=== PATIENT | female | born 1985 | race Two or more races ===

== ENCOUNTER 2025-06-16 16:26 | Emergency (ER) | payer OTHER ==
[~2025-06-16] VITALS: Ht 165.1 cm; Wt 79.8 kg
--- NOTE | 2025-06-16 17:50 | ED.PDOC ---
GI ASSESSMENT HPI Comments This is a 39 year-old female who presents to the ED with a chief complaint of LUQ abdominal pain as of X2 weeks ago. Patient reports additional symptoms of Nausea X2 days ago, but denies nausea as of currently. Patient states LUQ abdominal pain is an 8/10 and radiates to the LLQ and L groin. Patient reports a Hx of kidney stones but states the pain does not feel the similar to previous diagnoses. Patient has been taking antibiotics for x1 week. Patient additionally states she took Tylenol prior to ED visit, at 1500 today. Patient has no further complaints at this time and otherwise denies flank pain, N/V/D, dysuria, hematuria, fever, or chills. Vital signs were stable. Chief Complaint: Abdominal Pain Time Seen by MD: 17:44 Reviewed Notes: Nurses Notes, Medications, Allergies Allergies: Coded Allergies: NO KNOWN ALLERGIES (Unverified , 06/16/25) Information Source: Patient Mode of Arrival: Ambulatory Timing: Weeks Duration: Since onset Prehospital treatment: None Quality: Aching, Cramping, Sharp Vomitus: None Severity: Moderate Recent: None Recent Hx of: None Pain Location: LUQ, LLQ Associated sign and symptoms: Nausea, Abdominal Pain Past Medical History PAST MEDICAL HISTORY: Denies Surgical History: Denies all surgeries [employer] History: No Pertinent [employer]ER History Family History Family History: Reviewed,noncontributory to illness, No family hx of Cancer, No family hx of DM, No family hx of Heart smiley, No family hx of HTN, No family hx ofKidney smiley, No family hx of Liver smiley, No family hx of Lung smiley, No family hx of Stroke Social History Smoker: Non-Smoker Alcohol: Denies ETOH Use Drugs: Denies Drug Use Lives In: Home Constitutional: denies: chills, diaphoresis, fatigue, fever, malaise, sweats, weakness, others EENTM: denies: blurred vision, double vision, ear bleeding, ear discharge, ear drainage, ear pain, ear ringing, eye pain, eye redness, hearing loss, mouth pain, mouth swelling, nasal discharge, nose bleeding, nose congestion, nose pain, photophobia, tearing, throat pain, throat swelling, voice changes, others Respiratory: denies: cough, hemoptysis, orthopnea, SOB at rest, shortness of breath, SOB with excertion, stridor, wheezing, others Cardiovascular: denies: chest pain, dizzy spells, diaphoresis, Dyspnea on exertion, edema, irregular heart beat, left arm pain, lightheadedness, palpitations, PND, syncope, others Gastrointestinal: reports: abdominal pain, nausea; denies: abdomen distended, blood streaked bowels, constipated, diarrhea, dysphagia, difficulty swallowing, hematemesis, melena, poor appetite, poor fluid intake, rectal bleeding, rectal pain, vomiting, others Genitourinary: denies: abnormal vagina bleeding, burning, dyspareunia, dysuria, flank pain, frequency, hematuria, incontinence, pain, , vagina discharg e, urgency, others Neurological: denies: dizziness, fainting, headache, left sided numbness, left sided weakness, numbness, paresthesia, pre-existing deficit, right sided numbness, right sided weakness, seizure, speech problems, tingling, tremors, weakness, others Musculoskeletal: denies: back pain, gout, joint pain, joint swelling, muscle pain, muscle stiffness, neck pain, others Integumetry: denies: bruises, change in color, change in hair/nails, dryness, laceration, lesions, lumps, rash, wounds, others Allergic/Immunocompromised: denies: Difficulty Healing, Frequent Infections, Hives, Itching, others Hematologic/Lymphatic: denies: anemia, blood clots, easy bleeding, easy bruising, swollen glands, others Endocrine: denies: excessive hunger, excessive sweating, excessive thirst, excessive urination, flushing, intolerance to cold, intolerance to heat, unexplained weight gain, unexplained weight loss, others Psychiatric: denies: anxiety, bipolar disorder, depression, hopeless, panic d isorder, schizophrenia, sleepless, suicidal, others All Other Systems: Reviewed and Negative Physical Exam General Appearance: Moderate Distress (Due to left-sided upper and lower quadrant pain.), Obese HEENT: Normal ENT Inspection, Pharynx Normal, TMs Normal Neck: Full Range of Motion, Non-Tender, Normal, Normal Inspection Respiratory: Chest Non-Tender, Lungs Clear, No Accessory Muscle Use, No Respiratory Distress, Normal Breath Sounds Cardiovascular: No Edema, No JVD, No Murmur, No Gallop, Normal Peripheral Pulses, Regular Rate/Rhythm Breast Exam: Deferred Gastrointestinal: Other (Diffuse nonspecific left upper quadrant pain extending in the left lower quadrant. Unable to appreciate the splenic border. Difficult to assess due to body habitus. No signs of trauma.) Genitalia: Deferred Pelvic: Deferred Rectal: Deferred Extremities: No calf tenderness, Normal capillary refill, Normal inspection, Normal range of motion, Non-tender, No pedal edema Neurologic: Alert Cerebellar Function: NOT DONE Reflexes: NOT DONE Skin: Dry, Normal Color, Warm Lymphatic: No Adenopathy Was a procedure done? Was a procedure done?: No GI differential Dx Differential Diagnosis: Constipation, Diverticular disease, Gastritis/PUD, Gastroenteritis, Inflammatory BD, Pancreatitis, UTI, Urolithiasis, Dehydration, Food Poisoning, Bacterial, Parasitic, Viral, Kidney Stone X-Ray, Labs, Meds, VS Vital Signs Date Time Temp Pulse Resp B/P (MAP) Pulse Ox O2 Delivery O2 Flow Rate FiO2 06/16/25 21:10 98.0 62 17 100/56 (71) 98 98.0 06/16/25 16:27 98.7 84 16 134/78 98 98.7 Lab Test 06/16/25 19:48 06/16/25 18:19 Range/Units Urine Color Colorless Yellow Urine Clarity Clear Clear Urine pH 5.5 5.0-9.0 Urine Specific [place] 1.007 1.001-1.035 Urine Protein Negative Negative Urine Ketones Negative Negative Urine Blood Negative Negative /uL Urine Nitrite 1+ H Negative Urine Bilirubin Negative Negative Urine Urobilinogen Normal Negative mg/dL Urine Leukocyte Esterase 2+ Negative /uL Urine RBC 1 0 - 4 /hpf Urine Microscopic WBC 17 H 0-5 /HPF Urine Squamous Epithelial Cells Few <5 /hpf Urine Bacteria Few H None Seen /hpf Urine Glucose Normal Normal mg/dL White Blood Count 8.4 4.4-10.8 10^3/uL Red Blood Count 4.70 4.0-5.20 10^6/uL Hemoglobin 12.2 12.2-16.2 g/dL Hematocrit 37.4 36.0-46.0 % Mean Corpuscular Volume 79.6 L 80.0-100.0 fL Mean Corpuscular Hemoglobin 26.0 L 28.0-32.0 pg Mean Corpuscular Hemoglobin Concent 32.6 32.0-36.0 g/dL Red Cell Distribution Width 15.2 H 11.8-14.3 % Platelet Count 165 140-450 10^3/uL Mean Platelet Volume 11.1 H 6.9-10.8 fL Neutrophils (%) (Auto) 67.9 37.0-80.0 % Lymphocytes (%) (Auto) 20.6 10.0-50.0 % Monocytes (%) (Auto) 8.7 0.0-12.0 % Eosinophils (%) (Auto) 1.9 0.0-7.0 % Basophils (%) (Auto) 0.9 0.0-2.0 % Neutrophils # (Auto) 5.7 1.6-8.6 10 ^3/uL Lymphocytes # (Auto) 1.7 0.4-5.4 10 ^3/uL Monocytes # (Auto) 0.7 0-1.3 10 ^3/uL Eosinophils # (Auto) 0.2 0-0.8 10 ^3/uL Basophils # (Auto) 0.1 0-0.2 10 ^3/uL Nucleated Red Blood Cells 0.0 % Sodium Level 140 136-145 mmol/L Potassium Level 4.0 3.5-5.1 mmol/L Chloride Level 106 98-107 mmol/L Carbon Dioxide Level 26 20-31 mmol/L Anion Gap 8 5-15 Blood Urea Nitrogen 11 9-23 mg/dL Creatinine 0.78 0.550-1.02 mg/dL Glomerular Filtration Rate Calc 99 >90 mL/min BUN/Creatinine Ratio 14.1 10.0-20.0 Serum Glucose 102 74-106 mg/dL Calcium Level 9.4 8.7-10.4 mg/dL Lipase 38 12-53 U/L Current Medications Medications (Trade) Dose Ordered Sig/Lilia Route Start Time Stop Time Status Last Admin Ketorolac Tromethamine (Toradol Injection) 30 mg ONCE ONCE IM 06/16/25 18:00 06/16/25 18:01 DC 06/16/25 19:46 Acetaminophen/ Hydrocodone Bitart ([place] 10/325MG Tab) 1 tab ONCE ONCE PO 06/16/25 18:00 06/16/25 18:01 DC 06/16/25 19:47 X-Ray, Labs, Meds, VS Comment All studies performed the emergency department were evaluated by me personally. Serum studies were unremarkable for any systemic concerns, but urinalysis confirmed a UTI. CT of the abdomen and pelvis with contrast revealed an acute uncomplicated diverticulitis of the proximal sigmoid colon. No free air or abscess. Moderate pancolonic diverticulosis. Cholelithiasis. Mild hepatomegaly with diffuse hepatic steatosis and mild right hydroureter which could be related to reflux in the setting of a moderately distended urinary bladder. No hydronephrosis. Patient will be discharged on Augmentin to address the acute diverticulitis and urinary tract concerns. Patient has a urine culture pending as this urinary tract infection seems to be returning. Patient has been advised to follow up with the primary care provider. Images Reviewed?: Images reviewed and evaluated by me Time of 1ST Reevaluation: 21:59 Reevaluation 1ST: Improved Consultation: PCP, GI Patient Education/Counseling: Diagnosis, Treatment Family Education/Counseling: Diagnosis, Treatment, No Family Present SEPSIS Sepsis Screen Date sepsis recognized/suspect: Jun 16, 2025 Time Sepsis recognized/suspect: 1628 Recent Procedure: No On Antibiotic Therapy: Yes Respiratory Rate >20: No Heart Rate >90: No Temp<36 C (96.8 F) or >38.3 C: No SBP <90 or MAP <65 mmHG: No New Acute Mental Status Change: No Is the patient on CPAP, BIPAP,: No Physician Orders Ct Ab Pel Wo Con-No Oral Or Iv (06/16/25 17:47) Vital Signs Date Time Temp Pulse Resp B/P (MAP) Pulse Ox O2 Delivery O2 Flow Rate FiO2 06/16/25 21:10 98.0 62 17 100/56 (71) 98 98.0 06/16/25 16:27 98.7 84 16 134/78 98 98.7 Laboratory Tests Test 06/16/25 18:19 White Blood Count 8.4 10^3/uL (4.4-10.8) Medications Medications Dose Ordered Sig/Lilia Route Start Time Stop Time Status Last Admin Dose Admin Acetaminophen/ Hydrocodone Bitart 1 tab ONCE ONCE PO 06/16/25 18:00 06/16/25 18:01 DC 06/16/25 19:47 Ketorolac Tromethamine 30 mg ONCE ONCE IM 06/16/25 18:00 06/16/25 18:01 DC 06/16/25 19:46 Departure 1 Departure Time of Disposition: 21:59 Impression: Primary Impression: Diverticulitis of intestine Additional Impression: Urinary tract infection Disposition: 01 HOME / SELF CARE / HOMELESS Condition: Stable Additional Instructions: Advised patient utilize antibiotics as directed until completion. Patient should follow up with her primary care provider for discussions related to her diverticulitis diagnosis. Patient will need to adopt some nutritional changes moving forward including the removal of any seated items such as tomatoes, s trawberries and sesame seeds to name a few. e-Prescriptions Ondansetron Odt 4MG Tab (ZOFRAN PO) 4 Mg Tb 4 MG PO Q6HP PRN, #20 TAB ODT TAB-DISSOLVE IN MOUTH, THEN SWALLOW Prov: DG GALINDO PAC 06/16/25 Acetaminophen (Acetaminophen) 500 Mg Tab 500 MG PO Q4HP PRN, #30 TAB Prov: DG GALINDO PAC 06/16/25 Ibuprofen Micronized (Ibuprofen) 800 Mg Tab 800 MG PO Q8HP PRN, #20 TAB Prov: DG GALINDO PAC 06/16/25 Amoxicillin & Pot Clavulanate (AUGMENTIN TABLET) 875 Mg Tb 875 MG PO BID for 10 Days, #20 TAB Prov: DG GALINDO PAC 06/16/25 Discharged With: Self, Friend Critical Care Note Critical Care Time?: No Stability Stability form required: No Heart Score Heart Score: Heart Score Response (Comments) Value History N/A 0 EKG N/A 0 Age N/A 0 Risk Factors N/A 0 Troponin N/A 0 Total 0 I personally scribed for DG GALINDO PAC ([email or web address]) on 06/16/25 at 17:50. Electronically submitted by Lilliana Pablo ([employer]). I personally scribed for DG GALINDO PAC ([email or web address]) on 06/16/25 at 17:55. Electronically submitted by Lilliana Pablo ([employer]). DG GALINDO PAC Jun 16, 2025 17:50
--- NOTE | 2025-06-16 18:29 | DVH ---
CLINICAL HISTORY: Left-sided abdominal pain TECHNIQUE: CT of the abdomen and pelvis was performed without intravenous contrast. This exam was per formed according to our departmental dose optimization program. Up-to-date CT equipment and radiation dose reduction techniques are utilized as appropriate. CTDI: 12.42+ 0.14 DLP: 631.4 WID: COMPARISON: None FINDINGS: Lower Thorax: Unremarkable. Liver and Biliary system: Mild hepatomegaly measuring 18 cm craniocaudal, with diffuse hepatic steato sis. No definite hepatic lesion. Cholelithiasis and a normal caliber gallbladder. There is no biliar y ductal dilatation. Spleen: Unremarkable. Adrenal Glands and Kidneys: Normal adrenal glands. Mild right hydroureter. No nephrolithiasis in eith er kidney. No hydronephrosis. Slightly smaller right kidney. Pancreas and Retroperitoneum: Unremarkable. Aorta and Major Vessels: Unremarkable. Bowel, Mesentery and Peritoneal space: Normal caliber small and large bowel. There is moderate pancol onic diverticulosis. Normal appendix. No free air or fluid collection. There is an inflamed divertic ulum along the superior aspect of the proximal sigmoid colon with adjacent soft tissue stranding (ser ies 601, image 35). Pelvis: The uterus and ovaries are grossly unremarkable. The urinary bladder is moderately distended . There is no pelvic lymphadenopathy. Abdominal wall and Osseous Structures: Small fat containing umbilical hernia. No destructive osseous lesion. IMPRESSION: 1. Acute uncomplicated diverticulitis of the proximal sigmoid colon. No free air or abscess. 2. Moderate pancolonic diverticulosis. 3. Cholelithiasis. 4. Mild hepatomegaly with diffuse hepatic steatosis. 5. Mild right hydroureter which could be related to reflux in the setting of a moderately distended u rinary bladder. No obstructing calculus. No hydronephrosis in either kidney.
[2025-06-16 18:33] LABS: Hematocrit 37.4 % (36.0-46.0); Hemoglobin 12.2 g/dL (12.2-16.2); Mean Corpuscular Hemoglobin 26.0 pg (28.0-32.0); Mean Corpuscular Volume 79.6 fL (80.0-100.0); Nucleated Red Blood Cells % 0.0 %
[2025-06-16 18:41] LABS: Chloride 106 mmol/L (98-107); Potassium 4.0 mmol/L (3.5-5.1); Sodium 140 mmol/L (136-145)
[2025-06-16 18:42] LABS: Anion Gap 8 (5-15); Carbon Dioxide 26 mmol/L (20-31)
[2025-06-16 18:43] LABS: Calcium 9.4 mg/dL (8.7-10.4)
[2025-06-16 18:47] LABS: Glucose 102 mg/dL (74-106)
[2025-06-16 18:48] LABS: BUN/Creatinine Ratio 14.1 (10.0-20.0); Blood Urea Nitrogen 11 mg/dL (9-23); Lipase 38 U/L (12-53)
[2025-06-16] MEDS: KETOROLAC TROMETH 60MG/2ML VIAL IM ONE (19:46)
[2025-06-16] MEDS: HYDROcodone-ACET 10/325MG TAB PO ONE (19:47)
[2025-06-16 20:59] LABS: Urine Protein, UAD Negative (Negative)
[2025-06-16] MEDS ORDERED: ZOFR4T PO (22:01)
[2025-06-16] MEDS ORDERED: IBUP-1455 PO (22:01)
[2025-06-16] MEDS ORDERED: ACET500T58 PO (22:01)
[2025-06-16] MEDS ORDERED: AUG875T PO (22:01)
[2025-06-16 23:15] VITALS: BP 127/72; PULSE 79; RESP 16; TEMP 97.7; O2SAT 99
== END 2025-06-16 23:25 | disposition home or self-care (01) ==
LOC: ER 16:32
DX: K57.92 Diverticulitis of intestine, part unspecified, without perforation or abscess without bleeding (principal); N39.0 Urinary tract infection, site not specified
CPT/HCPCS: 36415; 74176; 80048; 81001; 83690; 85025; 99285; J1885